=== PATIENT | male | born 1955 | race Caucasian/White ===

== ENCOUNTER 2020-01-26 23:19 | Emergency (ER) | payer MEDICAID ==
[~2020-01-26] VITALS: Ht 177.8 cm; Wt 98.0 kg
[2020-01-26] MEDS ORDERED: METF-960 PO (23:25)
[2020-01-26 23:56] LABS: GLUCOSE,POINT OF CARE 103 MG/DL (70-110)
[2020-01-27] MEDS ORDERED: POLYETHYLENE GLYCOL 3350 17 GM PACKET PO ONE
[2020-01-27 01:10] VITALS: BP 128/88
== END 2020-01-27 01:33 | disposition home or self-care (01) ==
LOC: EMS 23:20
DX: K59.00 Constipation, unspecified (principal); E11.9 Type 2 diabetes mellitus without complications; Z79.84 Long term (current) use of oral hypoglycemic drugs
CPT/HCPCS: 74022